=== PATIENT | female | born 1945 | race Caucasian/White ===

== ENCOUNTER → 2017-04-18 13:34 | Outpatient (CLI) | payer MEDICARE, MEDICAID, SELFPAY ==
--- NOTE | 2017-04-18 | US_ITS ---
MM Dig mamm DX unilat RT CAD, US breast RT complete COMPARISON: 03/12/2017 at 01/25/2012 outside images. Report is delayed waiting on outside images for comparison obtained on 04/25/2017. INDICATION: Follow-up abnormal mammogram ORDERING PHYSICIAN: Santiago Jewell MD PATIENT AGE: 71 years TECHNIQUE: Standard images of the right breast performed along with spot compression mag views and right breast ultrasound FINDINGS: Average fibroglandular tissue. Cluster of calcification is noted in the upper outer aspect of the right breast and in the medial aspect of the right breast. These have a benign appearance on the magnification views and are not felt to be significantly changed compared to 01/25/2012. In addition, there is a 5 mm nodule in the deep upper outer right breast. This is present on the older exam of 01/25/2012 and not significant change. Ultrasound was performed of this nodule as the old films were not available at the time of the recent mammogram. Ultrasound right breast: There is a complex 6 x 6 mm cyst in the 10:00 region of the right breast corresponding to the mammographic abnormality. This is benign-appearing. IMPRESSION: Benign findings. No evidence of malignancy. BI-RADS Category: 2 Benign Finding(s) RECOMMENDED FOLLOW-UP: 1YR - 1 YEAR FOLLOW-UP (A letter has been sent to the patient regarding results of the study.)
== END ==
PROVIDERS: PCP Nurse Practitioner Family; Visit Provider Surgery
DX: R92.8 Other abnormal and inconclusive findings on diagnostic imaging of breast (principal)
CPT/HCPCS: 76641; 77065